=== PATIENT | male | born 1955 | race Caucasian/White ===

== ENCOUNTER 2016-08-26 17:35 | Emergency (ER) | payer OTHER ==
[~2016-08-26] VITALS: Ht 182.9 cm; Wt 56.2 kg
[~2016-08-26 17:35] MED LIST: ABILIFY2 MG PO; ACETAMINOPHEN325 M1 PO; ADVAIR HFA120 INHALA IH; AMLODIPINE BESY10 MG PO; APRESOLINE25 MG PO; ARIPIPRAZOLE10 MG PO; ATIVAN1 MG PO; AUGMENTIN875 MG PO; BUSPAR5 MG GT; CARISOPRODOL350 MG PO; CEFUROXIME500 MG PO; CELECOXIB200 MG PO; CLONIDINE HCL0.1 MG PO; CYCLOBENZAPRINE10 MG PO; DIAZEPAM10 MG PO; DIAZEPAM5 MG PO; DICYCLOMINE HCL10 MG PO; DOCUSATE SODIU100 MG PO; DUONEB 2.5-0.5 M3 ML AEROSOL; GABAPENTIN300 MG PO; GABAPENTIN600 MG PO; IBUPROFEN400 MG PO; INDERAL40 MG PO; LEVAQUIN750 MG PO; LIDOCAINE700 MG TD; LISINOPRIL20 MG PO; LISINOPRIL40 MG PO; LOVENOX40 MG/0.4 SC; MEDROL DOSEPAK4 MG PO; MILK OF MAGNESI10 ML PO; MIRTAZAPINE15 MG PO; MIRTAZAPINE30 MG PO; MUCINEX600 MG PO; NEURONTIN300 MG PO; NICODERM CQ1 EAC2 TD; NICOTINE PATCH1 EAC2 TD; NIFEREX-150,FE150 MG PO; NORVASC10 MG PO; OXAYDO5 MG PO; OXYCODONE HCL30 MG PO; OXYCODONE HCL5 MG PO; OXYCODONE-APAP1 EACH PO; OXYCONTIN10 MG PO; OXYCONTIN15 MG PO; OXYCONTIN30 MG PO; OXYCONTIN40 MG PO; OXYCONTIN60 MG PO; PAROXETINE HCL20 MG PO; PROMETHAZINE HC25 M1 PO; PROPRANOLOL HCL10 MG PO; PROPRANOLOL HCL20 MG PO; PROPRANOLOL HCL40 MG PO; ROBITUSSIN DM118 ML PO; ROXICODONE5 MG PO; SENOKOT S,PE1 TABLET PO; SODIUM CHLORIDE1 G1 PO; SOMA350 MG PO; SPIRIVA RESPIMAT4 GM IH; SUDOGEST30 MG PO; TAMSULOSIN HCL0.4 MG PO; THERAGRAN1 TABLET PO; TYLENOL REGULA325 MG PO; VALIUM10 MG PO; ZOFRAN4 MG PO; ZOLPIDEM TARTRAT5 MG PO
[2016-08-26] MEDS ORDERED: OXYCONTIN40 MG PO (18:08)
[2016-08-26] MEDS ORDERED: OXYCODONE HCL20 M1 PO (18:09)
[2016-08-26] MEDS ORDERED: REMERON15 M2 PO (18:10)
[2016-08-26] MEDS ORDERED: VALIUM5 MG PO (20:03)
[2016-08-26] MEDS ORDERED: MEDROL DOSEPAK4 MG PO (20:03)
[2016-08-26] MEDS ORDERED: OXYCODONE HCL10 MG PO (20:03)
[2016-08-26 20:38] VITALS: BP 132/72
== END 2016-08-26 20:41 | disposition home or self-care (01) ==
LOC: EME 17:35
DX: M25.551 Pain in right hip (principal); Z98.890 Other specified postprocedural states; Z96.641 Presence of right artificial hip joint; G89.29 Other chronic pain; Z79.891 Long term (current) use of opiate analgesic; F17.200 Nicotine dependence, unspecified, uncomplicated
CPT/HCPCS: 73700; 99281; 99284; J1170; J2270; J7050

== ENCOUNTER 2016-09-21 12:24 | Emergency (ER) | payer OTHER ==
[~2016-09-21] VITALS: Ht 182.9 cm; Wt 64.5 kg
[~2016-09-21 12:24] MED LIST changes: +OXYCODONE HCL10 MG PO; +OXYCODONE HCL20 M1 PO; +REMERON15 M2 PO; +VALIUM5 MG PO
[2016-09-21] MEDS ORDERED: PERCOCET 5/31 TABLET PO (15:06)
[2016-09-21 15:34] VITALS: BP 178/99
== END 2016-09-21 15:34 | disposition home or self-care (01) ==
LOC: EME 12:24
DX: M19.90 Unspecified osteoarthritis, unspecified site (principal); M25.551 Pain in right hip; M54.9 Dorsalgia, unspecified; G89.29 Other chronic pain; M85.88 Other specified disorders of bone density and structure, other site; Z96.643 Presence of artificial hip joint, bilateral; Z79.891 Long term (current) use of opiate analgesic; F17.200 Nicotine dependence, unspecified, uncomplicated
CPT/HCPCS: 73502; 99281; 99284; J1170; J2270; J7050

== ENCOUNTER → 2016-10-11 | Outpatient (CLI) | payer OTHER ==
[~2016-10-11] MED LIST changes: +PERCOCET 5/31 TABLET PO
== END | disposition home or self-care (01) ==
LOC: NUC 09:58
DX: S72.001G Fracture of unspecified part of neck of right femur, subsequent encounter for closed fracture with delayed healing (principal); R93.7 Abnormal findings on diagnostic imaging of other parts of musculoskeletal system
CPT/HCPCS: 78315; A9503

== ENCOUNTER 2016-10-16 16:36 | Emergency (ER) | payer OTHER ==
[~2016-10-16] VITALS: Ht 182.9 cm; Wt 65.3 kg
[2016-10-16 16:55] VITALS: BP 145/95
[2016-10-16 17:45] LABS: ADD MIUA? YES; BILIRUBIN NEGATIVE; BLOOD NEGATIVE; COLOR YELLOW ((YELLOW)); GLUCOSE (STRIP) NEGATIVE; KETONES NEGATIVE; LEUKOCYTES LARGE; NITRITE NEGATIVE; PROTEIN (STRIP) NEGATIVE; UROBILINOGEN 0.2 MG/DL (0.2-1.0)
[2016-10-16 17:59] LABS: BACTERIA NONE SEEN /HPF; EPITHELIAL CELLS NONE SEEN /HPF; MUCUS TRACE /LPF; RED BLOOD CELLS 0-5 /HPF (0-5); UCUL ADDED? NO; WHITE BLOOD CELLS 15-20 /HPF (0-5)
[2016-10-16] MEDS ORDERED: PERCOCET 10/1 TABLET PO (18:25)
== END 2016-10-16 18:51 | disposition home or self-care (01) ==
LOC: EME 16:36
DX: M25.551 Pain in right hip (principal); M54.5 Low back pain; G89.29 Other chronic pain; Z96.643 Presence of artificial hip joint, bilateral; Z88.1 Allergy status to other antibiotic agents; F17.200 Nicotine dependence, unspecified, uncomplicated
CPT/HCPCS: 81003; 99281; 99284; J2270

== ENCOUNTER 2016-10-20 14:46 | Emergency (ER) | payer OTHER ==
[~2016-10-20] VITALS: Ht 182.9 cm; Wt 67.2 kg
[~2016-10-20 14:46] MED LIST changes: +PERCOCET 10/1 TABLET PO
[2016-10-20] MEDS ORDERED: PROPRANOLOL HCL40 MG PO (15:13)
[2016-10-20] MEDS ORDERED: LAMISIL250 MG PO (15:16)
[2016-10-20 16:23] VITALS: BP 153/97
== END 2016-10-20 16:34 | disposition home or self-care (01) ==
LOC: EME 14:46
DX: M25.551 Pain in right hip (principal); M54.5 Low back pain; G89.29 Other chronic pain; Z96.643 Presence of artificial hip joint, bilateral; Z79.891 Long term (current) use of opiate analgesic; F17.200 Nicotine dependence, unspecified, uncomplicated
CPT/HCPCS: 99281; 99284; J2270

== ENCOUNTER 2016-10-27 11:52 | Emergency (ER) | payer OTHER ==
[~2016-10-27] VITALS: Ht 182.9 cm; Wt 68.0 kg
[~2016-10-27 11:52] MED LIST changes: +LAMISIL250 MG PO
[2016-10-27] MEDS ORDERED: FLEXERIL10 MG PO (12:55)
[2016-10-27] MEDS ORDERED: NAPROSYN500 MG PO (12:55)
[2016-10-27 13:14] VITALS: BP 174/110
== END 2016-10-27 13:15 | disposition home or self-care (01) ==
LOC: EME 11:52
DX: M54.5 Low back pain (principal); G89.29 Other chronic pain; Z96.643 Presence of artificial hip joint, bilateral; F17.200 Nicotine dependence, unspecified, uncomplicated; I10 Essential (primary) hypertension
CPT/HCPCS: 99281; 99284; J2270

== ENCOUNTER → 2016-12-02 | Outpatient (CLI) | payer OTHER ==
[~2016-12-02] MED LIST changes: +FLEXERIL10 MG PO; +NAPROSYN500 MG PO
[2016-12-02 13:43] LABS: PROTHROMBIN TIME 10.2 (9.2-11.2); PTT 36.8 (25-32)
[2016-12-02 16:34] LABS: APPEARANCE HAZY/YELLOW
[2016-12-02 16:46] LABS: RED CELL AREA COUNTED 0.4; RED CELL COUNT 2375 /MM^3 (0-1); RED CELL DILUTION 5
[2016-12-02 16:47] LABS: WBC AREA COUNTED 0.4; WBC DILUTION 5; WHITE CELL COUNT 26500 /MM^3 (0-200.0); WHITE CELL RAW COUNT 212
[2016-12-02 16:50] LABS: BODY FLUID LDH 3020 IU/L
[2016-12-02 16:51] LABS: MONO RAW COUNT 4; MONONUCLEAR WBC'S 4 %; POLY RAW COUNT 94; POLYNUCLEAR WBC'S 94 % (0-25); SYNOVIAL FLUID EOSINOPHILS 2 % (0-25)
[2016-12-03 08:07] LABS: CRYSTALS NO CRYSTALS SEEN
== END | disposition home or self-care (01) ==
LOC: OPR 12:42 → EDSTATUS 13:00
PROVIDERS: Orthopaedic Surgery
DX: M25.551 Pain in right hip (principal); Z96.643 Presence of artificial hip joint, bilateral; F41.9 Anxiety disorder, unspecified; F17.210 Nicotine dependence, cigarettes, uncomplicated
CPT/HCPCS: 77002; 82945 91; 83615 91; 84157; 85610; 85730; 87070; 87075; 87205; 89051

== ENCOUNTER 2016-12-10 18:11 | Emergency (ER) | payer OTHER ==
[~2016-12-10] VITALS: Ht 182.9 cm; Wt 67.4 kg
[2016-12-10] MEDS ORDERED: ATARAX,VISTARIL50 MG PO (20:35)
[2016-12-10 21:10] VITALS: BP 112/85
== END 2016-12-10 21:12 | disposition home or self-care (01) ==
LOC: EME 18:11 → RME 18:11
DX: Z76.0 Encounter for issue of repeat prescription (principal); F41.0 Panic disorder [episodic paroxysmal anxiety]; F17.200 Nicotine dependence, unspecified, uncomplicated; Z88.1 Allergy status to other antibiotic agents; Z88.5 Allergy status to narcotic agent
CPT/HCPCS: 99281; 99284

== ENCOUNTER 2017-02-09 22:19 | Inpatient (IN) | payer OTHER ==
[~2017-02-09] VITALS: Ht 182.9 cm; Wt 70.8 kg
[~2017-02-09 22:19] MED LIST changes: +ATARAX,VISTARIL50 MG PO; +PROVENTIL HFA6.7 GM IH
[2017-02-10 09:29] VITALS: BP 207/97
[2017-02-10 15:10] LABS: HEMATOCRIT 37.3 % (38.0-50.0); MCH 29.6 PG (29.0-34.0); MCHC 32.7 G/DL (30.0-36.0); MCV 90.5 FL (86-99); RBC DIS.WIDTH-CV 13.3 % (11.8-14.6); RBC DIS.WIDTH-SD 44.1 % (39-53); RED BLOOD COUNT 4.12 M/uL (4.00-5.50); WHITE BLOOD COUNT 11.5 K/uL (4.1-10.2)
[2017-02-10 15:37] LABS: MEAN PLAT.VOLUME 9.6 uM^3 (9.0-12.4); PLAT.SUFFICIENCY ADEQUATE
[2017-02-10 15:40] LABS: PLATELET COUNT 229 K/uL (156-360)
[2017-02-10 17:01] VITALS: BP 190/98
[2017-02-10 20:44] VITALS: BP 160/77
[2017-02-10 23:19] VITALS: BP 174/85
[2017-02-11 04:50] VITALS: BP 154/88
[2017-02-11 07:00] LABS: ANION GAP 10 MEQ/L (2-14); CHLORIDE 95 MEQ/L (99-109); GFR ESTIMATE (CALCULATED) > 59 mL/min/; GLUCOSE 128 mg/dL (70-99); POTASSIUM 4.2 MEQ/L (3.7-5.4); SAMPLE HEMOLYSIS CHECK 0; SAMPLE ICTERIC CHECK 0; SAMPLE LIPEMIA CHECK 0; SODIUM 131 MEQ/L (136-147); UREA NITROGEN (BUN) 7 mg/dL (9-23)
[2017-02-11 08:21] VITALS: BP 181/92
[2017-02-11 12:35] VITALS: BP 196/93
[2017-02-11 16:30] VITALS: BP 172/86
[2017-02-11 16:32] LABS: HEMATOCRIT 28.6 % (38.0-50.0); MCV 90.5 FL (86-99)
[2017-02-11 20:10] VITALS: BP 126/67
[2017-02-12] VITALS: BP 153/51
[2017-02-12 07:58] VITALS: BP 127/71
[2017-02-12 10:35] LABS: ANION GAP 3 MEQ/L (2-14); CHLORIDE 99 MEQ/L (99-109); GFR ESTIMATE (CALCULATED) > 59 mL/min/; GLUCOSE 113 mg/dL (70-99); POTASSIUM 4.1 MEQ/L (3.7-5.4); SAMPLE HEMOLYSIS CHECK 0; SAMPLE ICTERIC CHECK 0; SAMPLE LIPEMIA CHECK 0; SODIUM 134 MEQ/L (136-147); UREA NITROGEN (BUN) 5 mg/dL (9-23)
[2017-02-12 16:35] VITALS: BP 127/67
[2017-02-12 23:57] VITALS: BP 111/58
[2017-02-13 08:01] VITALS: BP 121/96
[2017-02-13] MEDS ORDERED: LOVENOX40 MG/0.4 SC (09:06)
[2017-02-13] MEDS ORDERED: OXYCODONE HCL30 MG PO (14:07)
[2017-02-13] MEDS ORDERED: DILAUDID8 MG PO (14:07)
[2017-02-13] MEDS ORDERED: OXYCONTIN40 MG PO (14:07)
[2017-02-13 15:37] VITALS: BP 93/56
[2017-02-13] MEDS ORDERED: VANCOMYCIN1.25 GM/25 IV (18:29)
== END 2017-02-13 17:38 | DRG 467 ==
LOC: ENRESERV 22:19 → 2SOUTH 02-10 08:15 → 3EAST 02-10 16:14 → 2SOUTH 02-10 16:45 → 3EAST 02-13 17:38
PROVIDERS: Nurse Practitioner Family; Orthopaedic Surgery
DX: T84.51XA Infection and inflammatory reaction due to internal right hip prosthesis, initial encounter (principal); Y83.1 Surgical operation with implant of artificial internal device as the cause of abnormal reaction of the patient, or of later complication, without mention of misadventure at the time of the procedure; I10 Essential (primary) hypertension; F41.9 Anxiety disorder, unspecified; F32.9 Major depressive disorder, single episode, unspecified; G89.29 Other chronic pain; Z96.642 Presence of left artificial hip joint; L30.9 Dermatitis, unspecified; M54.9 Dorsalgia, unspecified; M19.90 Unspecified osteoarthritis, unspecified site; M25.551 Pain in right hip; F11.20 Opioid dependence, uncomplicated; D64.9 Anemia, unspecified
CPT/HCPCS: 73522; 76937; 80048; 80202; 85014; 85018; 85027; 86140; 87070; 87075; 87077; 87205; 97530 GP; C1713; C1776; J0330; J0360; J0692; J1100; J1170; J1650; J2250; J2405; J2543; J2710; J3010; J3370; J7030; J7050; Q0169

== ENCOUNTER 2017-06-30 22:02 | Inpatient (IN) | payer OTHER ==
[~2017-06-30] VITALS: Ht 182.9 cm; Wt 74.5 kg
[~2017-06-30 22:02] MED LIST changes: +COZAAR100 MG PO; +DILAUDID8 MG PO; +VANCOMYCIN1.25 GM/25 IV; +ZANAFLEX2 MG PO
[2017-07-01 09:39] VITALS: BP 168/88
[2017-07-01 10:19] LABS: ANION GAP 10 MEQ/L (2-14); CHLORIDE 99 MEQ/L (99-109); GFR ESTIMATE (CALCULATED) > 59 mL/min/ (58.99-99999); GLUCOSE 131 mg/dL (70-99); SAMPLE HEMOLYSIS CHECK 0; SAMPLE ICTERIC CHECK 0; SAMPLE LIPEMIA CHECK 0; SODIUM 137 MEQ/L (136-147); UREA NITROGEN (BUN) 8 mg/dL (9-23)
[2017-07-01 10:20] LABS: POTASSIUM 4.2 MEQ/L (3.7-5.4)
[2017-07-01 16:02] LABS: HEMATOCRIT 40.8 % (38.0-50.0); MCH 30.5 PG (29.0-34.0); MCHC 33.3 G/DL (30.0-36.0); MCV 91.5 FL (86-99); MEAN PLAT.VOLUME 8.9 uM^3 (9.0-12.4); PLATELET COUNT 277 K/uL (156-360); RBC DIS.WIDTH-CV 14.1 % (11.8-14.6); RBC DIS.WIDTH-SD 47.4 % (39-53); RED BLOOD COUNT 4.46 M/uL (4.00-5.50); WHITE BLOOD COUNT 13.4 K/uL (4.1-10.2)
[2017-07-01 20:33] VITALS: BP 164/75
[2017-07-01 23:49] VITALS: BP 164/72
[2017-07-02 03:32] VITALS: BP 124/81
[2017-07-02 06:54] LABS: ANION GAP 7 MEQ/L (2-14); CHLORIDE 102 MEQ/L (99-109); GFR ESTIMATE (CALCULATED) > 59 mL/min/ (58.99-99999); GLUCOSE 135 mg/dL (70-99); POTASSIUM 3.4 MEQ/L (3.7-5.4); SAMPLE HEMOLYSIS CHECK 0; SAMPLE ICTERIC CHECK 0; SAMPLE LIPEMIA CHECK 0; SODIUM 136 MEQ/L (136-147); UREA NITROGEN (BUN) 6 mg/dL (9-23)
[2017-07-02 07:09] VITALS: BP 164/78
[2017-07-02 12:05] VITALS: BP 160/87
[2017-07-02] MEDS ORDERED: INDERAL40 MG PO (14:47)
[2017-07-02 15:35] VITALS: BP 164/80
[2017-07-02 15:39] LABS: HEMATOCRIT 31.8 % (38.0-50.0); MCV 92.2 FL (86-99)
[2017-07-02 19:17] VITALS: BP 124/87
[2017-07-02 23:30] VITALS: BP 134/74
[2017-07-03 06:57] LABS: HEMATOCRIT 28.7 % (38.0-50.0); MCV 92.6 FL (86-99)
[2017-07-03 08:03] VITALS: BP 119/68
[2017-07-03 15:59] VITALS: BP 115/67
[2017-07-04 00:45] VITALS: BP 111/61
[2017-07-04] MEDS ORDERED: DOCUSATE SODIU100 MG PO (08:30)
[2017-07-04] MEDS ORDERED: CELECOXIB200 MG PO (08:30)
[2017-07-04] MEDS ORDERED: LOVENOX40 MG/0.4 SC (08:30)
[2017-07-04 08:48] VITALS: BP 154/77
[2017-07-04 15:29] VITALS: BP 146/65
[2017-07-04] MEDS ORDERED: OXYCONTIN30 MG PO (20:37)
[2017-07-04] MEDS ORDERED: OXYCONTIN40 MG PO (20:37)
[2017-07-05 00:29] VITALS: BP 108/58
[2017-07-05 15:15] VITALS: BP 166/79
[2017-07-05] MEDS ORDERED: OXYCONTIN30 MG PO (18:16)
[2017-07-05] MEDS ORDERED: OXYCODONE HCL5 MG PO (18:16)
[2017-07-05] MEDS ORDERED: TIZANIDINE HCL4 MG PO (18:16)
[2017-07-05 23:58] VITALS: BP 115/65
[2017-07-06 07:20] VITALS: BP 168/72
== END 2017-07-06 10:09 | DRG 467 ==
LOC: ENRESERV 22:02 → 2SOUTH 07-01 08:47 → 3EAST 07-01 09:01 → 2SOUTH 07-01 09:34 → ENRESERV 07-01 17:31 → 3EAST 07-01 20:12
PROVIDERS: Orthopaedic Surgery; Physician Assistant
DX: T84.51XA Infection and inflammatory reaction due to internal right hip prosthesis, initial encounter (principal); M00.9 Pyogenic arthritis, unspecified; E87.1 Hypo-osmolality and hyponatremia; F17.210 Nicotine dependence, cigarettes, uncomplicated; G89.4 Chronic pain syndrome; I10 Essential (primary) hypertension; Y83.1 Surgical operation with implant of artificial internal device as the cause of abnormal reaction of the patient, or of later complication, without mention of misadventure at the time of the procedure; Z96.643 Presence of artificial hip joint, bilateral; F45.42 Pain disorder with related psychological factors; M54.5 Low back pain; Z73.6 Limitation of activities due to disability; Z79.51 Long term (current) use of inhaled steroids; Z88.1 Allergy status to other antibiotic agents
CPT/HCPCS: 71010; 73501; 80048; 85014; 85018; 85027; 94640; 94640 76; 97530 GP; 99202; C1713; C1776; J0690; J1170; J1650; J2250; J2270; J3010; J7050; Q0169

== ENCOUNTER 2017-07-06 22:06 | Observation (INO) | payer OTHER ==
[~2017-07-06] VITALS: Ht 182.9 cm; Wt 68.9 kg
[~2017-07-06 22:06] MED LIST changes: +TIZANIDINE HCL4 MG PO
[2017-07-07] VITALS (7 sets, daily range): BP systolic 98–149; BP diastolic 59–83
[2017-07-08 03:49] VITALS: BP 129/60
[2017-07-08 07:32] VITALS: BP 182/91
[2017-07-08 12:26] VITALS: BP 125/71
== END 2017-07-08 12:27 ==
LOC: EME → EDBD 22:06 → 3EAST 07-07 02:16 → EDOF 07-07 02:16 → ENRESERV 07-07 02:17 → 3EAST 07-07 02:54
DX: G89.18 Other acute postprocedural pain (principal); Z98.890 Other specified postprocedural states; G89.4 Chronic pain syndrome; T84.51XS Infection and inflammatory reaction due to internal right hip prosthesis, sequela; Z96.643 Presence of artificial hip joint, bilateral; J43.9 Emphysema, unspecified; F32.9 Major depressive disorder, single episode, unspecified; Z88.1 Allergy status to other antibiotic agents
CPT/HCPCS: 94640; 94640 76; 99202; 99281; 99285; G0378; J1650; J2270; Q0169